=== PATIENT | female | born 1975 | race Two or more races ===

== ENCOUNTER 2021-05-29 10:21 | Inpatient (IN) | payer OTHER ==
[~2021-05-29] VITALS: Ht 152.4 cm; Wt 68.5 kg
[2021-06-05] MEDS ORDERED: LOREEV XR2 MG (13:00)
[2021-06-05] MEDS ORDERED: VITAMIN D PO (13:01)
[2021-06-05] MEDS ORDERED: OMEGA 3 1,0001 EACH PO (13:01)
[2021-06-05] MEDS ORDERED: PAROXETINE CR12.5 MG PO (13:01)
[2021-06-05] MEDS ORDERED: VITAMIN C500 M6 PO (13:02)
[2021-06-09] MEDS ORDERED: FLONASE16 GM (08:06)
[2021-06-09] MEDS ORDERED: VITAMIN D310 MC4 (08:07)
== END 2021-06-10 09:59 | disposition home or self-care (01) | DRG 743 ==
LOC: EDSTATUS 06-05 11:30 → ADM 06-05 11:30 → O/R 06-09 06:31 → OB/GYN 06-09 09:30 → SURG-SUITE 06-09 11:03 → OB/GYN 06-09 11:30 → SURG-SUITE 06-10 09:59
PROVIDERS: ADMIT Obstetrics & Gynecology Gynecology; ATTEND Obstetrics & Gynecology Gynecology
PROC: 0UT7FZZ Resection of Bilateral Fallopian Tubes, Via Natural or Artificial Opening With Percutaneous Endoscopic Assistance (ICD-10-PCS; 2021-06-09)
PROC: 0UT2FZZ Resection of Bilateral Ovaries, Via Natural or Artificial Opening With Percutaneous Endoscopic Assistance (ICD-10-PCS; 2021-06-09)
PROC: 0DNU4ZZ Release Omentum, Percutaneous Endoscopic Approach (ICD-10-PCS; 2021-06-09)
PROC: 0TNB4ZZ Release Bladder, Percutaneous Endoscopic Approach (ICD-10-PCS; 2021-06-09)
PROC: 0UNG4ZZ Release Vagina, Percutaneous Endoscopic Approach (ICD-10-PCS; 2021-06-09)
PROC: 0UT9FZZ Resection of Uterus, Via Natural or Artificial Opening With Percutaneous Endoscopic Assistance (ICD-10-PCS; principal; 2021-06-09 09:30)
DX: D25.2 Subserosal leiomyoma of uterus (principal); Z20.822 Contact with and (suspected) exposure to COVID-19; N80.0 Endometriosis of uterus; N76.3 Subacute and chronic vulvitis; N72 Inflammatory disease of cervix uteri